=== PATIENT | female | born 1940 | race Caucasian/White ===

== ENCOUNTER → 2019-01-26 | Outpatient (CLI) | payer MEDICARE, OTHER ==
[2019-01-26 16:21] LABS: A TYPE INFLUENZA AG NEGATIVE (NEGATIVE); B INFLUENZA AG NEGATIVE (NEGATIVE)
== END ==
LOC: OD 15:30
PROVIDERS: ATTEND Family Medicine
DX: R68.89 Other general symptoms and signs (principal)
CPT/HCPCS: 87804

== ENCOUNTER → 2019-01-26 | Outpatient (CLI) | payer MEDICARE, OTHER | LOC: OD 15:23 | PROVIDERS: ATTEND Nurse Practitioner Family | DX: Z53.9 Procedure and treatment not carried out, unspecified reason (principal) ==

== ENCOUNTER 2019-03-07 09:45 | Day surgery (SDC) | payer MEDICARE, OTHER ==
[~2019-03-07 09:45] MED LIST: PROPOFOL INJ 200 MG/20 ML VIAL IV ONE
[2019-03-07] MEDS ORDERED: PROPOFOL INJ 200 MG/20 ML VIAL IV ONE (12:10)
[2019-03-07] MEDS ORDERED: SIMETHICONE 80 MG TAB.CHEW ONE (12:50)
--- NOTE | 2019-03-07 13:11 | Operative Report ---
Operative Report DATE OF SURGERY: 03/07/19 Operative Report: The risk, benefits and alternatives of the procedure including the risk of bleeding, perforation requiring surgery have been explained to the patient in detail and informed consent has been obtained. Patient is taken back to the endoscopy suite and placed in the left, lateral decubital position. Timeout was called. Propofol medication is administered. Rectal examination is done which did not reveal any masses, tears or fissures. An Olympus videoscope was introduced into the patient's rectum. Scope was then carefully advanced all the way to the cecum. The cecum was identified by the usual anatomical landmarks including the ileocecal valve as well as the appendiceal office. Photodocumentation is obtained. The scope was then sequentially pulled back via the various segments of the colon including the ascending colon, hepatic flexure, transverse colon, splenic flexure, descending colon and finally into the rectosigmoid portions of the colon. Retroflexion maneuvers performed. PREOPERATIVE DIAGNOSIS: Blood in stool POSTOPERATIVE DIAGNOSIS: inflammation noted on the right-hand side of the colon status post biopsy. Diverticulosis without any evidence of diverticulitis. Internal hemorrhoids. Redundant colon OPERATION: Colonoscopy with biopsy SURGEON: NEERAJ FUNG ANESTHESIA: LMAC TISSUE REMOVED OR ALTERED: As noted above. COMPLICATIONS: None. ESTIMATED BLOOD LOSS: None. INTRAOPERATIVE FINDINGS: As noted above. PROCEDURE: Patient tolerated the procedure well. No immediate postprocedure complications are noted. Patient is discharged in good condition. Discharge date 03/07/2019. Discharge diet: Regular. Discharge activity: Regular. 2 to 3-week follow-up to discuss findings. Patient is instructed to call the office or proceed to the emergency room should there be any further problems or questions. Wait on the pathology.
[2019-03-07 13:21] VITALS: BP 148/64
== END 2019-03-07 13:15 | disposition home or self-care (01) ==
LOC: END 09:45
PROVIDERS: ATTEND Internal Medicine Gastroenterology
DX: K52.9 Noninfective gastroenteritis and colitis, unspecified (principal); K64.8 Other hemorrhoids; K57.30 Diverticulosis of large intestine without perforation or abscess without bleeding; K92.1 Melena; I11.9 Hypertensive heart disease without heart failure; E78.5 Hyperlipidemia, unspecified; Z79.899 Other long term (current) drug therapy; Z88.5 Allergy status to narcotic agent; I25.2 Old myocardial infarction; I20.9 Angina pectoris, unspecified; I49.9 Cardiac arrhythmia, unspecified
CPT/HCPCS: 45380; 88305 ×2; 00811; A9270; J2704; 811